=== PATIENT | female | born 2000 ===

== ENCOUNTER 2023-04-05 09:42 | Inpatient (IN) | payer BC ==
[2023-04-05 11:19] LABS: Hematocrit 30.6 % (34.9-44.5); Mean Corpuscular HGB CONC 32.7 g/dL (32.0-36.0); Mean Corpuscular Hemoglobin 27.7 pg (27.0-33.0); Mean Corpuscular Volume 84.8 fl (81.6-98.3); Platelet Count 302 10x3/uL (150-450); RBC Distribution Width 14.5 % (11.5-14.5); Red Blood Cell (RBC) Count 3.61 10x6/uL (3.90-5.03); White Blood Cell (WBC) Count 7.8 10x3/uL (3.5-10.5)
[2023-04-05 11:20] VITALS: BMI 27.8
[2023-04-05] MEDS ORDERED: Oxytocin 30 units/NS 500 ML 500 ML ONE (11:33)
[2023-04-05 11:52] LABS: Syphilis Antibody Nonreactive (Nonreactive); Syphilis Antibody Index 0.06 S/CO (<1.00 Non-Reactive)
[2023-04-05 11:53] LABS: HBSAg Index 0.23 S/CO (0-0.99); Hep B Surf Ag - L&D Non-Reactive S/CO (NonReactive)
[2023-04-05] MEDS ORDERED: Misoprostol 100 MCG TAB ONE (12:00)
[2023-04-05] MEDS: Misoprostol 100 MCG TAB PO SCH (12:10)
[2023-04-05] MEDS ORDERED: Ondansetron PF 4 MG/2 ML Vial IVP PRN (12:10)
[2023-04-05] MEDS ORDERED: Promethazine HCl 25 MG/ML VIAL IM PRN (12:10)
[2023-04-05] MEDS ORDERED: hydrALAZINE 20 MG/ML VIAL SLOW IVP PRN (12:10)
[2023-04-05] MEDS ORDERED: Lidocaine 1% (PF) 30 ML VIAL SC PRN (12:10)
[2023-04-05] MEDS ORDERED: Ibuprofen 800 MG TAB PO PRN (12:10)
[2023-04-05] MEDS ORDERED: HYDROcodone/Acetaminophen 5/325 mg Tablet PO PRN ×2 (12:10)
[2023-04-05] MEDS ORDERED: fentaNYL 50 mcg/mL 1 mL Vial SLOW IVP PRN (12:10)
[2023-04-05] MEDS ORDERED: Oxytocin 30 units/NS 500 ML 500 ML IV SCH (12:15)
[2023-04-05] MEDS ORDERED: fentaNYL/Ropivacaine Epidural 100 ML ONE (23:32)
[2023-04-05] MEDS: Lactated Ringer's 1,000 ML IV SCH (23:48)
[2023-04-06] MEDS ORDERED: diphenhydrAMINE 50 MG/ML VIAL IVP PRN (00:09)
[2023-04-06] MEDS ORDERED: ePHEDrine Sulfate 50 MG/10 ML VIAL SLOW IVP PRN (00:09)
[2023-04-06] MEDS ORDERED: Naloxone HCl 0.4 mg/ml Vial IVP PRN ×2 (00:09)
[2023-04-06] MEDS ORDERED: Lactated Ringer's 500 ML IV PRN (00:09)
[2023-04-06] MEDS ORDERED: Ondansetron PF 4 MG/2 ML Vial IVP PRN (00:09)
[2023-04-06] MEDS ORDERED: Moisturizing Cream (Eucerin) 113 GM JAR TOP PRN (00:09)
[2023-04-06] MEDS ORDERED: Promethazine HCl 25 MG/ML VIAL IM PRN (00:09)
[2023-04-06] MEDS ORDERED: fentaNYL 2 mcg/Ropivacaine 0.2% Epidural 100 ML CADD EPIDURAL SCH (00:15)
[2023-04-06] MEDS ORDERED: Communication Order-Pharmacy FS SCH (00:15)
[2023-04-06] MEDS ORDERED: Tranexamic Acid 1,000 MG/10 ML VIAL ONE (00:55)
[2023-04-06] MEDS ORDERED: Misoprostol 200 MCG TAB ONE (00:55)
[2023-04-06] MEDS ORDERED: Methylergonovine 0.2 MG/ML VIAL ONE (04:34)
[2023-04-06] MEDS ORDERED: Carboprost 250 MCG/ML AMP ONE (04:34)
[2023-04-06 05:55] LABS: Analyzer IN Cardio CS NICU; RapidComm Collect By L&D
[2023-04-06 05:57] LABS: Analyzer IN Cardio CS NICU; RapidComm Collect By L&D; pH (Cord, venous) 7.323 (7.250-7.350)
[2023-04-06] MEDS ORDERED: Lanolin Ointment 7 GM TUBE TOP PRN (06:18)
[2023-04-06] MEDS ORDERED: Boostrix 0.5 ML (Tdap) VIAL (>/=7 yrs of age) IM ONE (06:18)
[2023-04-06] MEDS ORDERED: Preparation H Ointment 28 GM TUBE PR PRN (06:18)
[2023-04-06] MEDS ORDERED: diphenhydrAMINE 25 MG CAP PO PRN (06:18)
[2023-04-06] MEDS ORDERED: Methylergonovine 0.2 MG/ML VIAL IM PRN (06:18)
[2023-04-06] MEDS ORDERED: Benzocaine-Menthol 82.5 ML CAN TOP PRN (06:18)
[2023-04-06] MEDS ORDERED: Bisacodyl 10 MG SUPP PR PRN (06:18)
[2023-04-06] MEDS ORDERED: Milk Of Magnesia 30 ML UDCUP PO PRN (06:18)
[2023-04-06] MEDS ORDERED: Misoprostol 200 MCG TAB VAG PRN (06:18)
[2023-04-06] MEDS ORDERED: Acetaminophen 500 MG TAB PO PRN (06:18)
[2023-04-06] MEDS ORDERED: hydrALAZINE 20 MG/ML VIAL SLOW IVP PRN (06:18)
[2023-04-06] MEDS ORDERED: Ibuprofen 800 MG TAB PO SCH (08:00)
[2023-04-06] MEDS: Ferrous Sulfate 325 MG TAB PO SCH ×2 (09:00→09:01)
[2023-04-06] MEDS: Misoprostol 100 MCG TAB PO SCH ×2 (09:01→09:02)
[2023-04-06] MEDS: Lactated Ringer's 1,000 ML IV SCH (09:02)
[2023-04-06] MEDS: Docusate 100 MG CAP PO SCH ×2 (09:36→21:10)
[2023-04-06] MEDS: Prenatal Vitamin 1 TAB PO SCH (09:36)
[2023-04-06] MEDS: Acetaminophen 325 MG TAB PO PRN ×2 (09:54→15:06)
[2023-04-06] MEDS: Ibuprofen 800 MG TAB PO SCH ×2 (13:53→21:10)
[2023-04-07] MEDS: Ibuprofen 800 MG TAB PO SCH (05:18)
[2023-04-07] MEDS: Ferrous Sulfate 325 MG TAB PO SCH (08:07)
[2023-04-07] MEDS: Docusate 100 MG CAP PO SCH (09:05)
[2023-04-07] MEDS: Prenatal Vitamin 1 TAB PO SCH (09:05)
[2023-04-07 09:49] VITALS: BP 107/68; TEMP 98
== END 2023-04-07 12:35 | disposition home or self-care (01) | DRG 805 ==
LOC: CSHLD/OP 09:42 → CSHLD 10:04 → CSHPP 04-06 08:20
PROVIDERS: ADMIT Obstetrics & Gynecology; ATTEND Obstetrics & Gynecology
PROC: 10E0XZZ Delivery of Products of Conception, External Approach (ICD-10-PCS; principal; 2023-04-06)
DX: O41.03X0 Oligohydramnios, third trimester, not applicable or unspecified (principal); O45.93 Premature separation of placenta, unspecified, third trimester; Z37.0 Single live birth; Z3A.38 38 weeks gestation of pregnancy
CPT/HCPCS: 36415; 51702; 82805; 85027; 86780; 86850; 86870; 86900; 86901; 86905; 86922; 87340; 88307; 99285; J2590; J7120